=== PATIENT | male | born 1980 ===

== ENCOUNTER 2019-11-11 08:01 | Day surgery (SDC) | payer BC ==
[~2019-11-11 08:01] MED LIST: Lactated Ringers 1,000 ML IV SCH
--- NOTE | 2019-11-11 08:27 | PCM.PREANE ---
Preanesthetic Assessment - Anesthesia/Transfusion/Family Hx Anesthesia History: No Prior Anesthesia Family History of Anesthesia Reaction: No Transfusion History: No Prior Transfusion(s) Intubation History: Unknown - Review of Systems General: No Symptoms Pulmonary: No Symptoms Cardiovascular: No Symptoms Gastrointestinal: No Symptoms Neurological: No Symptoms Other: Reports: None - Physical Assessment Height: 5 ft 10 in Weight: 80.739 kg ASA Class: 1 Mental Status: Alert & Oriented x3 Airway Class: Mallampati = 1 Dentition: Reports: Normal Dentition Thyro-Mental Finger Breadths: 3 Mouth Opening Finger Breadths: 3 ROM/Head Extension: Full Lungs: Clear to Auscultation, Normal Respiratory Effort Cardiovascular: Regular Rate, Regular Rhythm - Allergies Allergies/Adverse Reactions: Allergies Allergy/AdvReac Type Severity Reaction Status Date / Time No Known Allergies Allergy Verified 11/07/19 12:52 - Blood Blood Available: No - Anesthesia Plan Pre-Op Medication Ordered: None - Acknowledgements Anesthesia Type Planned: General Anesthesia Pt an Appropriate Candidate for the Planned Anesthesia: Yes Alternatives and Risks of Anesthesia Discussed w Pt/Guardian: Yes Pt/Guardian Understands and Agrees with Anesthesia Plan: Yes PreAnesthesia Questionnaire - Past Health History Medical/Surgical History: Denies Medical/Surgical History - Past Surgical History Head Surgeries/Procedures: Reports: None - SUBSTANCE USE Smoking Status *Q: Former Smoker Tobacco Use Within Last Twelve Months: No - HOME MEDS Home Medications: Home Meds . [No Known Home Meds] 06/15/13 [History] - CURRENT (IN HOUSE) MEDS Current Meds: Current Medications Lactated Ringer's (Ringers, Lactated) 1,000 mls @ 100 mls/hr IV ASDIRECTED PETERSON
[2019-11-11] MEDS ORDERED: fentaNYL 250 MCG/5 ML SDV ONE (08:34)
[2019-11-11] MEDS ORDERED: Ketorolac 30 MG/ML SDV ONE (08:34)
[2019-11-11] MEDS ORDERED: Midazolam 1 MG/ML 2 ML SDV ONE (08:34)
[2019-11-11] MEDS ORDERED: Propofol 200 MG/20 ML SDV ONE (08:34)
[2019-11-11] MEDS ORDERED: Ondansetron 4 MG/2 ML SDV ONE (08:34)
[2019-11-11] MEDS ORDERED: Lidocaine 2% 5 ML SDV ONE (08:34)
[2019-11-11] MEDS ORDERED: Glycopyrrolate 0.2 MG/ML SDV ONE (08:34)
[2019-11-11] MEDS ORDERED: fentaNYL 100 MCG/2 ML SDV IVPUSH PRN (08:52)
[2019-11-11] MEDS ORDERED: Acetaminophen 1,000 MG in Premix Bag 1 BAG IV PRN (08:52)
[2019-11-11] MEDS ORDERED: ceFAZolin 1 GM Vial ONE (09:49)
[2019-11-11] MEDS ORDERED: Sodium Chloride 0.9% 20 ML ONE (09:49)
[2019-11-11] MEDS ORDERED: Sodium Chloride 0.9% 2.5 ML Syringe FLUSH PRN (10:03)
[2019-11-11] MEDS ORDERED: Sodium Chloride 0.9% 10 ML Syringe FLUSH PRN (10:03)
[2019-11-11] MEDS ORDERED: Sodium Chloride 0.9% 10 ML SDV IV PRN (10:03)
--- NOTE | 2019-11-11 13:03 | PCM.POSTAN ---
POST ANESTHESIA ASSESSMENT - MENTAL STATUS Mental Status: Alert, Oriented - VITAL SIGNS Vital Signs: Last Vital Signs Temp 37.1 C 11/11/19 12:32 Pulse 70 11/11/19 12:54 Resp 15 11/11/19 12:54 BP 104/75 11/11/19 12:54 Pulse Ox 95 11/11/19 12:54 - RESPIRATORY Respiratory Status: Respiratory Rate WNL, Airway Patent, O2 Saturation Stable - CARDIOVASCULAR CV Status: Pulse Rate WNL, Blood Pressure Stable - GASTROINTESTINAL GI Status: No Symptoms - PAIN Pain Score: 1 - POST OP HYDRATION Hydration Status: Adequate & Stable - OBSERVATIONS Free Text/Narrative:: No anesthesia problems
[2019-11-11] MEDS ORDERED: oxyCODONE 5 MG Tab PO ONE (13:12)
[2019-11-11] MEDS ORDERED: HYDROmorphone 2 MG/ML Syringe IVPUSH ONE (13:13)
--- NOTE | 2019-11-11 13:14 | OR ---
SURGEON: Lizandro Stevenson M.D. DATE OF PROCEDURE: 11/11/2019 PREOPERATIVE DIAGNOSIS: Bilateral inguinal hernia. POSTOPERATIVE DIAGNOSIS: Bilateral inguinal hernia. OPERATION: Bilateral inguinal hernia repair. DESCRIPTION OF PROCEDURE: The patient was given general anesthesia. He is in supine position. External genitalia and lower abdomen were all prepped and draped in sterile drapes. A right groin incision made, carried through Mary's fascia and external oblique aponeurosis. Cord structures were identified and isolated from surrounding structures. Dissection was continued until a lipoma of the cord was excised and the hernia sac was identified. The hernia sac was closed using a pursestring suture of 2-0 silk as close to the internal ring as possible. The excess hernia sac was submitted. Defect in the transversalis fascia was then repaired using interrupted 3-0 silk sutures. The conjoint tendon was cut with a relaxing incision and sutured to the reflection of the inguinal ligament to form the repair using 2-0 silk. With that done, the pulse is still palpable in the cord. External oblique aponeurosis was closed loosely with 3-0 silk. Subcutaneous tissues were reapproximated with 3-0 chromic. Skin was closed with 4-0 subcuticular nylon. The exact same thing was done on the left side; however, that side the hernia is too early. There is no hernia sac. The defect in the transversalis fascia was repaired using 3-0 silk sutures and a small lipoma of the cord was excised. The base was suture ligated with 2-0 silk. The relaxing incision was made in the conjoint tendon, which was then sutured to the reflection of the inguinal ligament to form the repair. The wound was irrigated. The external oblique aponeurosis closed after a pulse was palpable in the spermatic cord. Subcutaneous tissues were reapproximated with 3-0 chromic. Skin was closed with 4-0 subcuticular nylon. The patient tolerated the procedure well. Estimated blood loss under 10 mL. He was moved to recovery room in good condition. CHANTEL / LAURA /[id number]
--- NOTE | 2019-11-11 15:02 | PCM48HPAN ---
Post Anesthesia Note - EVALUATION WITHIN 48HRS OF ANESTHETIC Vital Signs in Normal Range: Yes Patient Participated in Evaluation: Yes Respiratory Function Stable: Yes Airway Patent: Yes Cardiovascular Function Stable: Yes Hydration Status Stable: Yes Pain Control Satisfactory: Yes (2/10 at rest) Nausea and Vomiting Control Satisfactory: Yes (No nausea, taking PO well) Mental Status Recovered: Yes Vital Signs: Last Vital Signs Temp 37.1 C 11/11/19 12:32 Pulse 70 11/11/19 12:54 Resp 15 11/11/19 12:54 BP 104/75 11/11/19 12:54 Pulse Ox 95 11/11/19 12:54
== END 2019-11-11 16:15 | disposition home or self-care (01) ==
LOC: MW.SDS 08:01
PROVIDERS: ATTEND Urology
DX: K40.20 Bilateral inguinal hernia, without obstruction or gangrene, not specified as recurrent (principal); D17.6 Benign lipomatous neoplasm of spermatic cord; Z87.891 Personal history of nicotine dependence
CPT/HCPCS: 49505; A9270; J0131; J0690; J1170; J1885; J2001; J2250; J2405; J2704; J3010; J3490; J7120; 00830; 88302; 88304